=== PATIENT | female | born 1940 | race Caucasian/White ===

== ENCOUNTER → 2017-03-22 08:57 | Outpatient (CLI) | payer MEDICARE, OTHER ==
[2009-08-26 07:26] VITALS: BMI 31.8
--- NOTE | ~2017-03-22 | EMG ---
PATIENT:JESUS DAVIDSON DATE OF SERVICE: 03/22/17 MEDICAL RECORD: [id number] DATE OF : 38 LOCATION: [facility] DATE: REFERRING PHYSICIAN: PENNY KAM MD INTERPRETING PHYSICIAN: LORETO ANTUNEZ MD DATE OF SERVICE: 03/22/2017 REFERRED BY: Dr. Kam as an outpatient. ELECTROMYOGRAPHIC DATA: Electromyographic examination is limited to the left upper extremity and is limited to the nerve conduction studies only at the request of the referring physician. In the left upper extremity, left median motor stimulation elicits a compound motor action potential with a distal latency of 4.2 milliseconds, peak amplitude of 8 millivolts, and calculated conduction velocity of 55 meters per second. Left ulnar motor stimulation elicits a compound motor action potential with a distal latency of 3.3 milliseconds, peak amplitude of 6 millivolts, and the calculated conduction velocity of 51 meters per second. Left ulnar motor stimulation across the elbow fails to elicit evidence of conduction block at this level. Antidromic left median sensory stimulation elicits a response with a distal latency of 5.7 milliseconds, amplitude of 6 microvolts and the calculated conduction velocity of 40 meters per second. Antidromic left ulnar sensory stimulation elicits a response with a distal latency of 3.9 milliseconds, amplitude of 8 microvolts and calculated conduction velocity of 42 meters per second. The left median F wave has a latency of 26 milliseconds. Needle electrode examination is not performed at this time. INTERPRETATION: Electromyographic examination of the left upper extremity, limited to the nerve conduction studies only at the request of the referring physician, is indicative of median neuropathy, at or distal to the wrist on the left, moderate in degree electrically on the left, consistent with the diagnosis of left carpal tunnel syndrome. The nerve conduction studies are otherwise normal. TRANSINT:[id number] Voice Confirmation ID: [id number] DOCUMENT ID: [id number] LORETO ANTUNEZ MD CC: [id number] DICTATION DATE: 03/23/17711 MANAGER VIDEO: 03/23/17725 DEP CLI 03/22/17 [place] [id number]
== END | disposition home or self-care (01) ==
LOC: D.CN 08:57
DX: R20.0 Anesthesia of skin (principal)